=== PATIENT | male | born 1960 | race Caucasian/White ===

== ENCOUNTER → 2021-05-02 | Outpatient (CLI) | payer OTHER ==
--- NOTE | 2021-05-02 10:08 | RAD ---
EXAM: Lumbar spine, 2 views. HISTORY: Sciatica. COMPARISON: None. FINDINGS: 2 views of the lumbar spine are obtained. There is mild lumbar dextroscoliosis centered at L2-L3. There is mild retrolisthesis of L4 on L5. There is multilevel endplate remodeling. There is di sc space narrowing at the lower lumbar levels. There is facet arthropathy predominantly at the lower lumbar levels. There are incidental calcified granulomas within the spleen. IMPRESSION: 1. Multilevel degenerative change, primarily at the lower lumbar levels. 2. Mild scoliosis and slight retrolisthesis of L4 on L5. Electronically signed by: Estefani Leon MD (05/02/2021 10:05 AM) [id number]
== END ==
LOC: RAD 09:33
PROVIDERS: ATTEND Anesthesiology Pain Medicine
DX: M47.816 Spondylosis without myelopathy or radiculopathy, lumbar region (principal); M41.86 Other forms of scoliosis, lumbar region; Z02.71 Encounter for disability determination
CPT/HCPCS: 72100